=== PATIENT | female | born 1985 | race Caucasian/White ===

== ENCOUNTER 2019-10-25 13:09 | Outpatient (CLI) | payer OTHER ==
[2019-10-25 13:35] LABS: BILIRUBIN,URINE NEGATIVE (NEGATIVE); GLUCOSE, URINE (UA) NEGATIVE (NEGATIVE); KETONES,URINE (UA) NEGATIVE (NEGATIVE); LEUKOCYTE ESTERASE, URINE NEGATIVE (NEGATIVE); NITRITE,URINE NEGATIVE (NEGATIVE); OCCULT BLOOD,URINE NEGATIVE (NEGATIVE); PROTEIN,URINE NEGATIVE (NEGATIVE); UROBILINOGEN,URINE 0.2 (NORMAL) E.U./dL (NORMAL)
[2019-10-25 13:42] LABS: CLARITY,URINE CLEAR (CLEAR)
[2019-10-25 13:43] LABS: BACTERIA,URINE None Seen /HPF (None Seen); RBC,URINE None Seen /HPF (0-5); SQUAMOUS EPITHELIAL CELL,UR RARE Squamous (<= Few)
== END 2019-10-25 13:10 | disposition home or self-care (01) ==
LOC: LAB 13:09
PROVIDERS: ATTEND Obstetrics & Gynecology
DX: R39.9 Unspecified symptoms and signs involving the genitourinary system (principal)
CPT/HCPCS: 81001

== ENCOUNTER 2020-12-22 00:44 | Emergency (ER) | payer OTHER ==
--- NOTE | 2020-12-22 00:51 | ED Physician Documentation ---
PD HPI UPPER EXT INJURY - Stated complaint Stated Complaint: R HAND INJ - History obtained from History obtained from: Patient - History of Present Illness Location: Right, Finger (ring finger) Type of injury: Blunt / blow (she was putting up tent pole and pole clip released, causing finger to jab into pointed area. Small lac base of nail and some blood under nail. Has increasing pain of it the past couple of hours.) Where injury occurred: Home Timing - onset: How many hours ago (2-3), Today Timing - details: Abrupt onset, Still present (worsening pain) Improved by: No: Rest Worsened by: Moving, Palpating Associated symptoms: No: Weakness, Numbness Similar symptoms before: Has not had sx before Review of Systems Skin: reports: Laceration (s) Neurologic: denies: Focal weakness, Numbness PD PAST MEDICAL HISTORY - Past Medical History Past Medical History: No - Present Medications Home Medications: Ambulatory Orders Medication Instructions Recorded Confirmed Sertraline [Zoloft] 50 mg PO DAILY PM 12/22/20 12/22/20 - Allergies Allergies/Adverse Reactions: Allergies Allergy/AdvReac Type Severity Reaction Status Date / Time No Known Drug Allergies Allergy Verified 12/22/20 00:54 PD ED PE NORMAL - Vitals Vital signs reviewed: Yes - General General: Alert and oriented X 3, Well developed/nourished, Other (appears in pain due to ring finger. ) - Extremities Extremities: Other (small laceration proximal nailbed edge and some blood under proximal nail, but only about 3 mm showing. Distal nailbed without blood. No noted FB. ) - Neuro Neuro: No motor deficit, No sensory deficit Results - Vitals Vitals: Vital Signs - 24 hr 12/22/20 12/22/20 12/22/20 00:48 02:02 02:18 Temperature 36.7 C 36.7 C Heart Rate 72 72 59 L Respiratory 16 16 16 Rate Blood Pressure 155/91 H 117/73 113/70 O2 Saturation 99 99 98 Oxygen O2 Source Room air - Rads (name of study) finger xray Radiology: Prelim report reviewed (no fractures nor FBs.), See rad report Procedures - Regional nerve block Nerve block site: Digital - note digit(s) (right ring finger) Right / left: Right Nerve block anesthesia: Lidocaine 2% Nerve block aftercare: Excellent anesthesia, Patient tolerated well, No complications PD MEDICAL DECISION MAKING - ED course Complexity details: re-evaluated patient (tried to burn hole in nail to see if the small amount of blood was causing pressure/pain, but it was too sensitive, which also suggests probably not enough blood buffer to be the cause of the pain. Still hurting a lot after PO meds. Offered digitial block and she accepted. ), considered differential, d/w patient Departure - Departure Disposition: 01 Home, Self Care Clinical Impression: Subungual hematoma Finger laceration Qualifiers: Encounter type: initial encounter Finger: ring finger Damage to nail status: with damage Foreign body presence: without foreign body Laterality: right Qualified Code(s): S61.314A - Laceration without foreign body of right ring finger with damage to nail, initial encounter Condition: Stable Record reviewed to determine appropriate education?: Yes Instructions: ED Hematoma Subungual Follow-Up: BRIDGET AGUILAR MD [Primary Care Provider] - Comments: Clean the wound with soap and water and apply ointment and keep it bandaged and clean. Recheck if signs of infection. The blood under the nail should absorb and decrease pressure over the next couple of days. The sustaining color of the nail will work its way to the end as the nail grows out. The finger should stay numb through the night with the digital block. I presume will be feeling less painful in the morning. Tylenol or ibuprofen as needed for pains. Discharge Date/Time: 12/22/20 02:23
[2020-12-22] MEDS ORDERED: HYDROcod/ACETAM 5/325 MG TABLET PO STA (01:04)
[2020-12-22] MEDS ORDERED: IBUPROFEN 600 MG TABLET PO STA (01:04)
[2020-12-22] MEDS ORDERED: BACITRACIN ZINC OINT 1 PACKET TOP STA (01:32)
[2020-12-22] MEDS ORDERED: LIDOCAINE-MPF 2% 5 ML VIAL SUBQ STA (01:38)
[2020-12-22] MEDS ORDERED: ONDANSETRON ODT 4 MG TABLET TL STA (01:53)
[2020-12-22 02:20] VITALS: BP 113/70
--- NOTE | 2020-12-22 11:09 | XRAY Report ---
PROCEDURE: Finger(s) RT INDICATIONS: ring finger injury tonight TECHNIQUE: AP hand, 3 views of the fourth finger(s) acquired. COMPARISON: None FINDINGS: Bones: No fractures or dislocations. No suspicious bony lesions. Soft tissues: No suspicious soft tissue calcifications. IMPRESSION: No visualized acute fracture or dislocation. However, occult injury cannot be excluded. Recommend leonarda rt interval imaging follow-up in 7-10 days as clinically indicated for additional evaluation. Reviewed by: La Nena Colón MD on 12/22/2020 11:07 AM PDT Approved by: La Nena Colón MD on 12/22/2020 11:07 AM PDT Station ID: [id number]
== END 2020-12-22 02:23 | disposition home or self-care (01) ==
LOC: ED 00:44
DX: S61.314A Laceration without foreign body of right ring finger with damage to nail, initial encounter (principal); S60.141A Contusion of right ring finger with damage to nail, initial encounter; W22.8XXA Striking against or struck by other objects, initial encounter; Y93.89 Activity, other specified; G89.11 Acute pain due to trauma
CPT/HCPCS: 64450; 73140; 99283; A9270; Q0162

== ENCOUNTER 2021-09-16 11:19 | Outpatient (CLI) | payer OTHER ==
--- NOTE | 2021-09-16 12:11 | XRAY Report ---
PROCEDURE: Hand 3 View LT INDICATIONS: L HAND PX TECHNIQUE: 3 views of the hand(s) acquired. COMPARISON: None FINDINGS: Bones: No fractures or dislocations. No suspicious bony lesions. Soft tissues: No suspicious soft tissue calcifications. IMPRESSION: No osseous lesion. If there are persistent symptoms or continued clinical concern for pathology, then repeat plain film radiographs (7-10 days) or advanced imaging (CT, MR, bone scan) should be consider ed for further evaluation. Reviewed by: Teresa Mi MD, PhD on 09/16/2021 12:09 PM PDT Approved by: Teresa Mi MD, PhD on 09/16/2021 12:09 PM PDT Station ID: [id number]
== END 2021-09-16 23:59 | disposition home or self-care (01) ==
LOC: DI.N 11:19
PROVIDERS: ATTEND Family Medicine
DX: M79.642 Pain in left hand (principal)

== ENCOUNTER 2023-12-09 09:25 | Outpatient (CLI) | payer OTHER ==
[2023-12-09 09:39] LABS: BASOPHILS % (AUTO) 0.4 %; EOSINOPHILS # (AUTO) 0.2 10^3/uL (0.0-0.7); EOSINOPHILS % (AUTO) 3.2 %; HCT - HEMATOCRIT 41.5 % (37.0-47.0); HGB - HEMOGLOBIN 13.3 g/dL (12.0-16.0); LYMPHOCYTES # (AUTO) 1.8 10^3/uL (1.5-3.5); MEAN CORPUSCULAR HEMOGLOBIN 29.8 pg (27.0-31.0); MEAN PLATELET VOLUME 10.5 fL (7.9-10.8); MONOCYTES # (AUTO) 0.6 10^3/uL (0.0-1.0); MONOCYTES % (AUTO) 10.4 %; NEUTROPHILS # (AUTO) 3.1 10^3/uL (1.5-6.6); NEUTROPHILS % (AUTO) 54.8 %; PLT - PLATELET COUNT 214 10^3/uL (130-450); RED BLOOD COUNT 4.46 10^6/uL (4.20-5.40); RED CELL DISTRIBUTION WIDTH 12.4 % (12.0-15.0); WHITE BLOOD COUNT 5.7 x10^3/uL (4.8-10.8)
[2023-12-09 09:52] LABS: CREATININE,URINE 96.4 mg/dL
[2023-12-09 09:54] LABS: ALBUMIN 4.5 g/dL (3.2-5.5); ALBUMIN/GLOBULIN RATIO 1.5 (1.0-2.2); ALKALINE PHOSPHATASE 54 IU/L (42-121); ALT ALANINE AMINOTRANSFERASE 10 IU/L (10-60); AST ASPARTATE AMINOTRANSFERASE 14 IU/L (10-42); BILIRUBIN,TOTAL 0.9 mg/dL (0.2-1.0); BUN - BLOOD UREA NITROGEN 12 mg/dL (6-20); CALCIUM 9.6 mg/dL (8.5-10.3); CARBON DIOXIDE - CO2 28 mmol/L (21-32); CHLORIDE 106 mmol/L (101-111); CHOL/HDL RATIO 3.6 (<4.4); CHOLESTEROL 177 mg/dL; CREATININE 0.8 mg/dL (0.6-1.3); GFR - MDRD 80 (>89); GLUCOSE 96 mg/dL (74-104); HDL CHOLESTEROL 49 mg/dL; LDL CHOLESTEROL,CALCULATED 112 mg/dL; LDL/HDL RATIO 2.3 (<4.4); POTASSIUM 4.5 mmol/L (3.5-4.5); SODIUM 138 mmol/L (135-145); TOTAL PROTEIN 7.5 g/dL (6.4-8.9); TRIGLYCERIDES 80 mg/dL (48-352); VLDL CHOLESTEROL 16 mg/dL
[2023-12-09 09:55] LABS: MICROALBUMIN,URINE < 0.7 mg/dL
[2023-12-09 10:08] LABS: THYROID STIMULATING HORMONE 1.38 uIU/mL (0.34-5.60)
== END 2023-12-09 09:26 | disposition home or self-care (01) ==
LOC: LAB 09:25
PROVIDERS: ATTEND Family Medicine
DX: F41.9 Anxiety disorder, unspecified (principal); D51.0 Vitamin B12 deficiency anemia due to intrinsic factor deficiency; R42 Dizziness and giddiness; R03.0 Elevated blood-pressure reading, without diagnosis of hypertension
CPT/HCPCS: 36415; 80050; 80061; 82043; 82172; 82570; 82607; 83721